=== PATIENT | female | born 1935 ===

== ENCOUNTER 2022-07-12 10:11 | Outpatient (CLI) | payer MEDICARE, MEDICAID, SELFPAY ==
--- NOTE | 2022-07-12 10:15 | USCV_ITS ---
Ashley Wilson Age: 86 Gender: F : 1935 Exam Date: 07/12/2022 10:48 Ordering Phys: Lela Reveles Technologist: Cris Salgado Exam Location: [facility] [place] Indication: systolic and diastolic CHF BP: 120 / 80 HR: 59 Rhythm: Sinus Technical Quality: Good MEASUREMENTS (Male / Female) Normal Values 2D ECHO LV Diastolic Diameter PLAX 4.0 cm 4.2 - 5.9 / 3.9 - 5.3 cm LV Systolic Diameter PLAX 3.1 cm IVS Diastolic Thickness 1.7 cm 0.6 - 1.0 / 0.6 - 0.9 cm IVS Systolic Thickness 1.5 cm LVPW Diastolic Thickness 0.9 cm 0.6 - 1.0 / 0.6 - 0.9 cm LVPW Systolic Thickness 1.8 cm LVOT Diameter 2.0 cm LV Ejection Fraction 2D Teich 47.4 % LV Ejection Fraction MOD 2C 59.5 % LV Ejection Fraction 2C AL 57.4 % LA Diameter 2.6 cm LA Width 2.2 cm LA Height 4.0 cm RA Width 1.9 cm RA Height 3.2 cm Aorta at Sinotubular Diameter 2.9 cm IVC Diameter 1.1 cm M-MODE MV E Point Septal Separation 0.5 cm DOPPLER AV Peak Velocity 156.3 cm/s LVOT Peak Velocity 101.0 cm/s AV Area Cont Eq vti 2.2 cm squared AV Area Cont Eq pk 2.1 cm squared MV Peak Velocity 141.0 cm/s MV Area PHT 1.6 cm squared Mitral E to A Ratio 0.4 MV E' Velocity 47.0 cm/s TR Peak Velocity 194.8 cm/s TR Peak Gradient 15.2 mmHg Right Atrial Pressure 5.0 mmHg Pulmonary Artery Systolic Pressu 20.2 mmHg PV Peak Velocity 92.0 cm/s RV Acceleration Time 0.1 s RV Ejection Time 0.3 s RV AcT/ET 0.3 FINDINGS Left Ventricle Left ventricle is normal in size. Moderate left ventricular hypertrophy. LV systolic function is normal with EF of 55 to 60%. No regional wall motion abnormalities are seen. Grade 1 diastolic dysfunction. Right Ventricle Normal in size and function Right Atrium Normal in size Left Atrium Normal in size Mitral Valve Moderate mitral annular calcification. Mild mitral regurgitation. Aortic Valve Aortic valve is thickened. Mild aortic regurgitation. No significant aortic stenosis. Tricuspid Valve Mild tricuspid regurgitation. Pulmonary artery systolic pressure is normal. Pulmonic Valve Not well visualized. Trace pulmonic regurgitation. Pericardium Trace pericardial effusion Aorta Normal in size IVC Appears to be normal CONCLUSIONS LV systolic function is normal with EF 55 to 60%. Moderate left ventricular hypertrophy Grade 1 diastolic dysfunction Mild mitral regurgitation Mild aortic regurgitation Mild tricuspid regurgitation Trace pulmonic regurgitation Trace pericardial effusion No comparison studies are available Hemal Dubois MD (Electronically Signed) Final Date: 26 Jul 2022 12:21 S
== END 2022-07-12 10:12 | disposition home or self-care (01) ==
LOC: RAD 10:19
PROVIDERS: Visit Provider Nurse Practitioner Family
DX: I50.42 Chronic combined systolic (congestive) and diastolic (congestive) heart failure (principal); I34.0 Nonrheumatic mitral (valve) insufficiency; I35.1 Nonrheumatic aortic (valve) insufficiency; I07.1 Rheumatic tricuspid insufficiency
CPT/HCPCS: 93306